=== PATIENT | female | born 1985 | race Caucasian/White ===

== ENCOUNTER 2020-01-24 10:29 | Observation (INO) | payer MEDICAID ==
[2020-01-24] VITALS (10 sets, daily range): BP systolic 119–183; BP diastolic 72–106; PULSE 58–82; TEMP 98.1–98.4
[~2020-01-24] VITALS: Ht 160 cm; Wt 64.5 kg
--- NOTE | 2020-01-24 10:30 | NUR ---
Pt arrives on unit via wheelchair for OBS. See physician notification. Changed into clean gown. Admission assessment completed. Pt updated on POC. FHR tracing. BP as noted. Denies pre-ecclampsia ss.
[2020-01-24] MEDS ORDERED: PROZAC 20MG20 MG PO (10:39)
[2020-01-24] MEDS ORDERED: XANAX .25M0.25 MG/TA PO (10:40)
[2020-01-25 02:12] VITALS: BP 144/86; PULSE 56; TEMP 97.9
[2020-01-25 08:00] VITALS: BP 140/82; PULSE 63; TEMP 98.5
[2020-01-25] MEDS ORDERED: TRANDATE 100MG100 MG PO (10:14)
[2020-01-25 11:55] VITALS: BP 132/77; PULSE 68
[2020-01-25 13:31] LABS: URINE 24 HOUR CREATININE 1.3 gm/24 hr (0.8-1.8)
== END 2020-01-25 12:30 | disposition home or self-care (01) ==
LOC: LDRO 10:29 → LDR 10:31 → LDRO 10:55 → LDR 10:56 → OB 10:56 → LDR 10:56 → OB 15:28
PROVIDERS: ADMIT Obstetrics & Gynecology
DX: O16.2 Unspecified maternal hypertension, second trimester (principal); O99.342 Other mental disorders complicating pregnancy, second trimester; F41.9 Anxiety disorder, unspecified; O34.219 Maternal care for unspecified type scar from previous cesarean delivery; Z88.8 Allergy status to other drugs, medicaments and biological substances; Z3A.00 Weeks of gestation of pregnancy not specified; Z79.899 Other long term (current) drug therapy
CPT/HCPCS: G0378